=== PATIENT | male | born 1960 | race Caucasian/White ===

== ENCOUNTER 2017-08-19 20:28 | Emergency (ER) | payer OTHER ==
[~2017-08-19] VITALS: Ht 177.8 cm; Wt 101.0 kg
[~2017-08-19 20:28] MED LIST: ASPI-664 PO; ATOR80TA75 PO; CARV25TA79 PO; ERGO500014 PO; GLIM4TAB PO; HYDR12.53 PO; LANT3I SC; LOSA50TA2 PO; RANO500T2 PO; SITA1TAB5 PO; TICA90TA PO
[2017-08-19 20:31] VITALS: Ht 177.8 cm; Wt 101.0 kg
[2017-08-19] MEDS ORDERED: KETOROLAC 30 MG INJ IM STA (21:53)
[2017-08-19] MEDS ORDERED: HYDROCODONE/APAP (5/325) TAB PO ONE (22:00)
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
[2017-08-19 22:37] LABS: URINE BLOOD (Dip) POC Trace-intact (NEGATIVE)
--- NOTE | 2017-08-19 23:22 | RADRPT ---
PROCEDURE: XR Chest. CLINICAL INDICATION: Chest pain. TECHNIQUE: AP view of the chest was obtained. COMPARISON: 10/31/2016 FINDINGS: The cardiomediastinal silhouette is within normal limits. The lungs are clear. No signs of pleural f luid or pneumothorax are seen. The osseous structures and soft tissues are unremarkable. IMPRESSION: 1. No evidence for active cardiopulmonary disease. RPTAT: HGAS .Hemal Iqbal MD, MD Date Time Electronically viewed and signed by .Hemal Iqbal MD, on 08/19/2017 23:22 .S/
--- NOTE | 2017-08-19 23:22 | RADRPT ---
PROCEDURE: XR Lumbar Spine. CLINICAL INDICATION: Lumbar spine pain. TECHNIQUE: AP, lateral, and cone-down lateral view of the lumbar spine were obtained. COMPARISON: No prior studies are available for comparison. FINDINGS: The alignment of the lumbar spine is within normal limits. There are anterior osteophytes from L2-S 1 with mild to moderate narrowing of the intervertebral disc spaces at at L5-S1. There are mild ass ociated discogenic endplate changes at this level. The vertebral body heights and marrow density are normal in appearance. There is moderate facet spondylosis at L4-5 and L5-S1 with suggestion of jean ral foraminal narrowing at these levels. The remaining neural foramina appear patent. The paraspin al soft tissues unremarkable. There is no evidence of fracture. There is atherosclerotic calcifica tion of the abdominal aorta without definite evidence of aneurysm formation. IMPRESSION: 1. Mild to moderate spondylosis/degenerative enthesopathy at L5-S1. 2. Moderate facet spondylosis at L4-5 and L5-S1 with suggestion of neural foraminal narrowing at th [place] levels. 3. No evidence of fracture. RPTAT: HGAS .Hemal Iqbal MD, Date Time Electronically viewed and signed by .Hemal Iqbal MD, on 08/19/2017 23:22 .S/
[2017-08-19] MEDS ORDERED: HYDR-906 PO (23:35)
[2017-08-19] MEDS ORDERED: IBUP400T22 PO (23:35)
[2017-08-20 00:08] VITALS: BP 165/87; PULSE 70; RESP 18; TEMP 97.6
== END 2017-08-20 00:08 | disposition home or self-care (01) ==
LOC: FTE 20:28
DX: M54.5 Low back pain (principal); I10 Essential (primary) hypertension; E11.9 Type 2 diabetes mellitus without complications; I25.10 Atherosclerotic heart disease of native coronary artery without angina pectoris; F17.210 Nicotine dependence, cigarettes, uncomplicated; Z79.4 Long term (current) use of insulin; Z79.82 Long term (current) use of aspirin; Z98.61 Coronary angioplasty status
CPT/HCPCS: 71010; 72100; 81003; 93005; 96372; 99284; J1885